=== PATIENT | female | born 1965 ===

== ENCOUNTER 2018-10-06 15:28 | Emergency (ER) | payer OTHER ==
[2018-10-06 15:59] VITALS: O2SAT 99
[2018-10-06] MEDS ORDERED: Lidocaine 5% Patch TD STA (16:13)
[2018-10-06] MEDS ORDERED: Naproxen 550 mg Tab PO STA (16:13)
--- NOTE | 2018-10-06 16:19 | C.PDOC ---
History Of Present Illness Patient is a 53 year old female who presents to the ED c/o right shoulder pain x3days. 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 She states she has been taking ibuprofen with little relief and grew concerned when pain worsened rating it as sharp, nonradiating, and a 8/10. She denies any trauma, injury, weakness, numbness, or tingling. Time Seen by Provider: 10/06/18 15:53 Chief Complaint (Nursing): Upper Extremity Problem/Injury History Per: Patient History/Exam Limitations: no limitations Onset/Duration Of Symptoms: Days (3) Quality: "Pain" Pain Scale Rating Of: 8 Recent travel outside of the [place]: No Additional History Per: Patient Past Medical History Reviewed: Historical Data, Nursing Documentation, Vital Signs Vital Signs: Last Vital Signs Temp 98 F 10/06/18 15:46 Pulse 88 10/06/18 15:46 Resp 18 10/06/18 15:46 BP 150/98 H 10/06/18 15:46 Pulse Ox 99 10/06/18 15:46 Primary Care Provider: FAMILY PROVIDER,NO - Medical History PMH: No Chronic Diseases Surgical History: No Surg Hx Family History: States: No Known Family Hx - Social History Hx Alcohol Use: No Hx Substance Use: No - Immunization History Hx Tetanus Toxoid Vaccination: No Hx Influenza Vaccination: No Hx Pneumococcal Vaccination: No Review Of Systems Constitutional: Negative for: Weakness Cardiovascular: Negative for: Chest Pain Respiratory: Negative for: Shortness of Breath Musculoskeletal: Positive for: Shoulder Pain (right ). Negative for: Neck Pain, Back Pain Skin: Negative for: Rash, Bruising Neurological: Negative for: Numbness, Headache, Other (tingling) Physical Exam - Physical Exam Appears: Non-toxic, No Acute Distress Skin: Warm, Dry Head: Atraumatic, Normacephalic Eye(s): bilateral: Normal Inspection Neck: Normal ROM, Supple Chest: Symmetrical Cardiovascular: Rhythm Regular Respiratory: Normal Breath Sounds, No Accessory Muscle Use, No Wheezing Gastrointestinal/Abdominal: Soft, No Tenderness Back: No CVA Tenderness Extremity: Tenderness ( Slight tender to palaption of right shoulder. No ecchyomsis, edema, erythema), Capillary Refill (less than 2 seconds), No Deformity, No Swelling, Other (right shoulder limited ROM due to pain) Pulses: Left Brachial: Normal, Right Brachial: Normal Neurological/Psych: Oriented x3, Normal Speech, Normal Cognition, Normal Sensation Gait: Steady ED Course And Treatment O2 Sat by Pulse Oximetry: 99 (on RA) Pulse Ox Interpretation: Normal - Other Rad Xray Rt Shoulder X-Ray: Viewed By Me, Read By Radiologist Interpretation: PROCEDURE: Radiographs of the Right Shoulder, three views. HISTORY: pain. COMPARISON: None available. FINDINGS: BONES: No acute displaced fracture. The distal clavicle and underlying ribs appear intact. JOINTS: No acute dislocation. At least 3 calcifications adjacent to the jenni ral head consistent with calcific tendinitis. SOFT TISSUES: Soft tissues appear unremarkable. No evidence of radiopaque foreign body. IMPRESSION: Evidence of calcific tendinitis. Medical Decision Making Medical Decision Making: Plan: Lidoderm 1ea TD Naproxen 550mg PO given Xray Rt Shoulder ordered and reviewed revealing calcified tendonitis of shoulder . advised to continue Naproxen twice a day for pain Lidoderm patch as needed to site Rest, Ice, Compression, and elevation Follow up in Ortho clinic for possible MRI Return to ED if symptoms worsen Patient verbalizes understanding and is in agreement with plan. Patient is stable for discharge. Disposition Counseled Patient/Family Regarding: Studies Performed, Diagnosis, Need For Followup, Rx Given - Disposition Referrals: Eric Lee MD [Staff Provider] - Orthopedic Clinic at [Outside] Disposition: HOME/ ROUTINE Disposition Time: 16:56 Condition: IMPROVED Additional Instructions: Xray report given to you today Naproxen twice a day for pain Lidoderm patch as needed to site Rest, Ice, Compression, and elevation Follow up in Ortho clinic for possible MRI Return to ED if symptoms worsen Informe de Xray dado a usted hoy Naproxeno dos veces al da para el dolor Lidoderm parche segn sea necesario para el sitio Reposo, hielo, compresin y elevacin Seguimiento en la clnica Ortho para reji posible resonancia magntica Regrese a la ED si los sntomas empeoran Prescriptions: Lidocaine 5% [Lidoderm] 1 ea TD DAILY PRN #30 patch PRN Reason: Pain, Moderate (4-7) Naproxen [Naprosyn] 500 mg PO BID #30 tablet Instructions: Calcific Tendonitis of the Shoulder (DC) Forms: [facility] (Angolan), Work Excuse Print Language: HUNGARIAN - Clinical Impression Clinical Impression: Right shoulder pain, Calcific shoulder tendinitis - PA / [employer] / Resident Statement MD/DO has reviewed & agrees with the documentation as recorded. - Scribe Statement The provider has reviewed the documentation as recorded by the Rex Castro All medical record entries made by the Rex were at my direction and personally dictated by me. I have reviewed the chart and agree that the record accurately reflects my personal performance of the history, physical exam, medical decision making, and the department course for this patient. I have also personally directed, reviewed, and agree with the discharge instructions and disposition.
[2018-10-06] MEDS ORDERED: Lidocaine 5% Patch TD ONE (16:50)
[2018-10-06] MEDS ORDERED: Naproxen 550 mg Tab PO ONE (16:50)
--- NOTE | 2018-10-06 16:55 | RAD ---
PROCEDURE: Radiographs of the Right Shoulder, three views HISTORY: pain COMPARISON: None available. FINDINGS: BONES: No acute displaced fracture. The distal clavicle and underlying ribs appear intact. JOINTS: No acute dislocation. At least 3 calcifications adjacent to the humeral head consistent with calcific tendinitis. SOFT TISSUES: Soft tissues appear unremarkable. No evidence of radiopaque foreign body. IMPRESSION: Evidence of calcific tendinitis.
[2018-10-06 17:16] VITALS: BP 151/89; PULSE 77; RESP 19; TEMP 98.4
== END 2018-10-06 17:15 | disposition home or self-care (01) ==
LOC: C.ER 15:28
DX: M75.31 Calcific tendinitis of right shoulder (principal); M25.511 Pain in right shoulder